=== PATIENT | male | born 1940 | race African-American/Black ===

== ENCOUNTER 2016-11-13 09:05 | Emergency (ER) | payer MEDICARE, MEDICAID ==
[~2016-11-13] VITALS: Ht 180.3 cm; Wt 97.0 kg
[~2016-11-13 09:05] MED LIST: ASPI-1035 PO; CLOP75TA33 PO; DOCU-138 PO; DOXA8TAB81 PO; DUTA0.5C2 PO; LATA2.5D2 EACHEYE; LOSA50TA20 PO; METF10002 PO; NEBI5TAB3 PO; NIFE30TA94 PO; NIFE90TA47 PO; PRAV20TA57 PO; PREG50CA PO; TIMO15DR12 EACHEYE; TRIA1TAB5 PO
[2016-11-13] MEDS ORDERED: KETOROLAC 60MG/2ML VIAL IM ONE (10:15)
[2016-11-13 13:26] VITALS: BP 129/81
== END 2016-11-13 13:58 | disposition home or self-care (01) ==
LOC: ER 10:07
DX: M79.604 Pain in right leg (principal); E11.9 Type 2 diabetes mellitus without complications; I10 Essential (primary) hypertension; Z79.82 Long term (current) use of aspirin; Z86.73 Personal history of transient ischemic attack (TIA), and cerebral infarction without residual deficits
CPT/HCPCS: 93971; 96372; 99284; J1885

== ENCOUNTER 2018-08-26 11:09 | Emergency (ER) | payer MEDICARE, MEDICAID ==
[~2018-08-26] VITALS: Ht 180.3 cm; Wt 100.0 kg
[~2018-08-26 11:09] MED LIST changes: -ASPI-1035 PO; +ASPI-1159 PO; +METF-416 PO; -METF10002 PO
[2018-08-26] MEDS ORDERED: ACETAMINOPHEN 500MG TABLET PO ONE (14:45)
[2018-08-26 15:50] VITALS: BP 132/63
== END 2018-08-26 15:50 | disposition home or self-care (01) ==
LOC: ER 11:30
DX: M25.511 Pain in right shoulder (principal); R53.1 Weakness; E11.9 Type 2 diabetes mellitus without complications; I10 Essential (primary) hypertension; Z86.73 Personal history of transient ischemic attack (TIA), and cerebral infarction without residual deficits; Z87.19 Personal history of other diseases of the digestive system; Z98.890 Other specified postprocedural states
CPT/HCPCS: 73030; 99283

== ENCOUNTER 2021-12-09 09:07 | Emergency (ER) | payer MEDICARE, MEDICAID ==
[~2021-12-09] VITALS: Ht 177.8 cm; Wt 91.0 kg
[~2021-12-09 09:07] MED LIST changes: -ASPI-1159 PO; +ASPI-1497 PO; +LATA2.5D14 EACHEYE; -LATA2.5D2 EACHEYE; -LOSA50TA20 PO; +LOSA50TA41 PO
[2021-12-09 09:18] VITALS: BP 110/71
[2021-12-09 10:24] LABS: BASOPHILS % 0.5 % (0.0-2.0); EOSINOPHILS % 1.4 % (0.0-5.0); HEMATOCRIT. 38.2 % (42.0-52.0); HEMOGLOBIN. 12.6 g/dL (14.0-18.0); MEAN CORPUSCULAR HEMOGLOBIN 30.5 pg (28.0-32.0); MEAN CORPUSCULAR VOLUME 92.3 fL (80.0-94.0); MEAN PLATELET VOLUME 9.7 fl (7.4-10.4); MONOCYTES % 8.4 % (2.0-8.0); NEUTROPHILS % 75.7 % (40.0-76.0); PLATELET 198 x1000/uL (130-400); RED BLOOD CELL COUNT 4.14 mill/uL (4.7-6.1); RED CELL DISTRIBUTION WIDTH 13.8 % (11.6-14.6)
[2021-12-09 10:33] LABS: CHLORIDE 109 mEq/L (98-107)
[2021-12-09] MEDS ORDERED: POLY17PO3 MT (11:51)
== END 2021-12-09 12:22 | disposition home or self-care (01) ==
LOC: ER 09:07
DX: K59.00 Constipation, unspecified (principal); I10 Essential (primary) hypertension; E11.9 Type 2 diabetes mellitus without complications; Z86.73 Personal history of transient ischemic attack (TIA), and cerebral infarction without residual deficits; Z90.49 Acquired absence of other specified parts of digestive tract; Z98.890 Other specified postprocedural states; Z79.84 Long term (current) use of oral hypoglycemic drugs; Z79.82 Long term (current) use of aspirin
CPT/HCPCS: 36415; 74176; 80053; 85025; 99284